=== PATIENT | female | born 1960 | race Caucasian/White ===

== ENCOUNTER 2018-04-17 20:37 | Emergency (ER) | payer MEDICAID ==
[~2018-04-17] VITALS: Ht 162.6 cm; Wt 77.1 kg
[2018-04-17 21:06] VITALS: BP 165/71
== END 2018-04-17 21:14 | disposition left against medical advice (07) ==
LOC: ER 20:37
DX: R00.2 Palpitations (principal); Z53.21 Procedure and treatment not carried out due to patient leaving prior to being seen by health care provider
CPT/HCPCS: 93005

== ENCOUNTER 2022-04-22 02:35 | Emergency (ER) | payer MEDICAID, OTHER ==
[~2022-04-22] VITALS: Ht 162.6 cm; Wt 68.5 kg
[2022-04-22] MEDS ORDERED: CIPR1SUS8 OT (04:21)
[2022-04-22] MEDS ORDERED: ACET-1158 PO (04:21)
[2022-04-22 04:40] VITALS: BP 112/58
== END 2022-04-22 04:55 | disposition home or self-care (01) ==
LOC: ER 02:35
DX: H60.91 Unspecified otitis externa, right ear (principal); E78.5 Hyperlipidemia, unspecified; I10 Essential (primary) hypertension